=== PATIENT | male | born 1960 | race Caucasian/White ===

== ENCOUNTER → 2017-01-31 | Outpatient (CLI) | payer OTHER ==
[~2017-01-31] VITALS: Ht 185.4 cm; Wt 110.5 kg
[~2017-01-31] MED LIST: ALLO300T2 PO; APIX5TAB PO; CHLORHEXIDINE GLUCONATE 2 % 1 PACK (2 CLOTHS) TOPICAL PRN; INSULIN HUMAN REGULAR 1,000 UNITS/10 ML VIAL SQ PRN; IOHEXOL 350 MG/ML 50 ML BTL (for RAD DIAG) ONE; LABE100T2 PO; LACTATED RINGER'S 1000 ML IV PRN; LOSA50TA PO; METOPROLOL TARTRATE 25 MG TAB PO PRN; PANT20 PO; POVIDONE IODINE 5% (ANTISEPSIS KIT) 4 APPLICATIONS EACH NARE PRN; SIMV40TA PO; SODIUM CHLORID 0.9% 500 ML IV PRN; diphenhydrAMINE HCL 50 MG/ML VIAL IV PUSH ONE; oxyCODONE/ACETAMINOPHEN 5 MG/325 MG TAB PO ONE
[2017-01-31 08:46] VITALS: BP 141/82; PULSE 60; RESP 18; TEMP 97.6; O2SAT 98
[2017-01-31] MEDS: PROPOFOL 200 MG/20 ML AMP IV PUSH ONE (11:45)
[2017-01-31 12:06] VITALS: BP 164/90; PULSE 50; RESP 20; TEMP 97.6; O2SAT 100
--- NOTE | 2017-01-31 12:07 | EKG ---
Date Performed: 01/31/2017 Time Performed: 09:02:16 PTAGE: 56 years EKG: SINUS BRADYCARDIA BORDERLINE ECG NO PREVIOUS TRACING DOCTOR: Dimitrios Garcia Interpretating Date/Time 01/31/2017 12:04:56
[2017-01-31] MEDS: oxyCODONE/ACETAMINOPHEN 5 MG/325 MG TAB ONE (12:11)
--- NOTE | 2017-01-31 12:31 | RADRPT ---
EXAM DATE/TIME: 01/31/2017 11:23 [place] COMPARISON: No previous studies available for comparison. INDICATIONS : Obstruction, stone removal. FLUORO TIME: 1.40 minutes IMAGE COUNT: 1 CONTRAST: Instilled by Ordering Physician MEDICAL HISTORY : Cholelithiasis. SURGICAL HISTORY : Cholecystectomy. ENCOUNTER: Initial ACUITY: 2 days PAIN SCORE: Non-responsive. LOCATION: Abdomen FINDINGS: An ERCP was performed by the ordering physician. The images demonstrate dilated common bile duct. There is a wire in the common bile duct. Filling def ect distally likely stone. CONCLUSION: ERCP as above. Mo Trinidad MD on January 31, 2017 at 12:29 Board Certified Radiologist. This report was verified electronically.
--- NOTE | 2017-03-30 22:31 | MR ---
cc: RASHAD FOFANA M.D. DATE OF 1960 DATE OF PROCEDURE 01/31/2017 PROCEDURE ERCP with sphincterotomy, stone extraction with balloon sweep. INDICATION This is a pleasant 56-year-old gentleman who has choledocholithiasis, needs ERCP. PROCEDURE After informing the patient of procedure and complications, consent was signed. The patient was placed on his abdomen in prone position. Adequate sedation was achieved by anesthesia. The scope was placed in the mouth, advanced under video guidance to the second portion of the duodenum. The ampulla was identified. Cannulation was achieved without any difficulty. Cholangiogram showed filling defect in the common bile duct. Sphincterotomy was performed sweeping the duct with balloon 12 and 16 mm was done multiple times with stone retrieved without any . After that the scope was removed from the patient without any difficulty and the patient was recovered without any immediate complications. FINDINGS 1. Esophagogastroduodenoscopy. Limited exam, normal. 2. Common bile duct showing defect consistent with stone status post sphincterotomy and removal. 3. Stone was removed without any difficulty. RECOMMENDATIONS 1. N.p.o. until the morning. 2. Follow up liver function tests tomorrow. 3. Further plan to follow. 4. MD DOMINIC Motley/TERESA /5:08 PM /10:15 PM
== END ==
LOC: HSDC 07:56
PROVIDERS: ATTEND Hospitalist
DX: K80.50 Calculus of bile duct without cholangitis or cholecystitis without obstruction (principal); R00.1 Bradycardia, unspecified
CPT/HCPCS: 00740; 43262; 74330; 93005; C1769; J7120; Q9967